=== PATIENT | female | born 2000 | race Caucasian/White ===

== ENCOUNTER 2019-02-09 18:52 | Emergency (ER) | payer OTHER ==
[~2019-02-09] VITALS: Ht 157.5 cm; Wt 83.2 kg
--- NOTE | 2019-02-09 20:30 | REPVR ---
PROCEDURE INFORMATION: Exam: CT Lumbar Spine Without Contrast Exam date and time: 02/09/2019 7:42 PM Age: 18 years old Clinical indication: Injury or trauma; Fall; Initial encounter; Blunt trauma (contusions or hematomas); Additional info: Fall injury; Vert. Point tender. Include s-spine please TECHNIQUE: Imaging protocol: Computed tomography images of the lumbar spine without contrast. Radiation optimization: All CT scans at this facility use at least one of these dose optimization techniques: automated exposure control; mA and/or kV adjustment per patient size (includes targeted exams where dose is matched to clinical indication); or iterative reconstruction. COMPARISON: No relevant prior studies available. FINDINGS: Vertebrae: [id number]-[id number] thoracolumbar levoconvex curvature. Vertebral body height and AP alignment is preserved. No acute fracture. Discs/Spinal canal/Neural foramina: No definite significant central canal stenosis. Soft tissues: Unremarkable. IMPRESSION: No acute osseous abnormality. Electronically signed by: Tony Huynh On 02/09/2019 20:29:30 PM
[2019-02-09 20:44] VITALS: BP 123/63
== END 2019-02-09 20:53 | disposition home or self-care (01) ==
LOC: M ED 18:52
DX: S30.0XXA Contusion of lower back and pelvis, initial encounter (principal); W00.0XXA Fall on same level due to ice and snow, initial encounter; Y92.89 Other specified places as the place of occurrence of the external cause; Z88.0 Allergy status to penicillin

== ENCOUNTER 2019-03-13 12:18 | Emergency (ER) | payer OTHER ==
[~2019-03-13] VITALS: Ht 157.5 cm; Wt 80.1 kg
[2019-03-13] MEDS ORDERED: NS 1,000 ML IV SCH (12:33)
[2019-03-13] MEDS ORDERED: KETOROLAC 30 MG/ML VIAL (J1885) IV ONE (12:45)
[2019-03-13 13:29] LABS: BASO % 0.4 % (0.0-1.0); EOS % 0.2 % (0.0-3.0); HEMATOCRIT 39.3 % (36.0-47.0); HEMOGLOBIN 12.9 g/dl (12.0-15.5); LYMPH # 0.8 10^3/uL (1.5-5.0); LYMPH % 14.9 % (24.0-44.0); MEAN CORPUSCULAR HEMOGLOBIN 27.6 pg (27.0-33.0); MEAN CORPUSCULAR HGB CONC 32.8 g/dl (32.0-36.5); MEAN CORPUSCULAR VOLUME 84.2 fl (80.0-96.0); MONO # 0.4 10^3/uL (0.0-0.8); MONO % 7.6 % (0.0-5.0); NEUTROPHILS # 4.2 10^3/uL (1.5-8.5); NEUTROPHILS % 76.7 % (36.0-66.0); PLATELET COUNT, AUTOMATED 245 10^3/uL (150-450); RED BLOOD COUNT 4.67 10^6/uL (4.00-5.40); WHITE BLOOD COUNT 5.4 10^3/uL (4.0-10.0)
[2019-03-13 13:47] LABS: BLOOD UREA NITROGEN 6 MG/DL (7-18); CALCIUM LEVEL 8.6 MG/DL (8.5-10.1); CARBON DIOXIDE LEVEL 23 MEQ/L (21-32); CHLORIDE LEVEL 107 MEQ/L (98-107); CREATININE FOR GFR 0.64 MG/DL (0.55-1.30); GLUCOSE, FASTING 82 MG/DL (70-100); LIPASE 64 U/L (73-393); POTASSIUM SERUM 3.7 MEQ/L (3.5-5.1); SODIUM LEVEL 139 MEQ/L (136-145)
[2019-03-13 13:51] LABS: INR 1.08; PROTHROMBIN TIME 13.7 SECONDS (11.8-14.0)
[2019-03-13 13:52] LABS: HCG, SERUM QUALITATIVE NEGATIVE (NEGATIVE)
[2019-03-13] MEDS ORDERED: PYRI1TAB5 PO (14:44)
[2019-03-13] MEDS ORDERED: CIPR-249 PO (14:45)
[2019-03-13] MEDS ORDERED: ZOFR4TAB16 PO (14:45)
[2019-03-13] MEDS ORDERED: IBUP-1022 PO (14:45)
--- NOTE | 2019-03-13 14:46 | REP ---
CT ABDOMEN AND PELVIS WITHOUT IV OR ORAL CONTRAST: HISTORY: Left lower quadrant pain. FINDINGS: Digital preliminary blueprint duplicator radiograph is unremarkable. The lung bases are clear on axial CT images. The liver and the spleen are normal in size and homogeneous in texture. No adrenal lesion is seen. The gallbladder and pancreas are unremarkable. Kidneys are morphologically intact. No hydronephrosis or intrarenal calculus is observed. No ureteral stone is seen. There is a 2 cm cystic area in the right ovary and a smaller cystic area in the left ovary 1.6 cm. No uterine abnormality is observed. Urinary bladder is unremarkable. The appendix is felt to be in the inguinal region without inflammatory change. Small and large intestinal bowel loops are unremarkable. No evidence of free air or abnormal fluid collection. No abdominal wall defect. There is a mild levoconvex lumbar scoliotic curvature. No bony destructive lesion. IMPRESSION: Levoconvex lumbar scoliosis. No urinary tract calculus or hydronephrosis seen. Small follicle cysts in each ovary. No acute abdominal or pelvic abnormality. Electronically Signed by Santosh Garcia MD 03/13/2019 03:08 P
--- NOTE | 2019-03-13 14:48 | REP ---
PELVIC SONOGRAPHY: HISTORY: Left lower quadrant pain. FINDINGS: Transabdominal and transvaginal scanning are performed. Uterine dimensions are 8.8 x 4.1 x 5.4 cm. Endometrial echo is 1.1 cm thick. No focal uterine mass is seen. There is a minimal amount of cul-de-sac fluid consistent with physiologic fluid. The right ovary measures 4.8 x 2.7 x 2.1 cm. It contains a 2.5 cm cyst and a 1.4 cm hypoechoic cyst. Its Doppler flow is normal, resistive index 0.54. The left ovary's dimensions are 3.4 x 2.0 x 1.9 cm. Doppler flow is present in the left ovary as well, resistive index 0.63. IMPRESSION: Two small follicle cysts, right ovary. Otherwise negative. Electronically Signed by Santosh Garcia MD 03/13/2019 03:08 P
[2019-03-13 15:11] VITALS: BP 112/63
== END 2019-03-13 15:11 | disposition home or self-care (01) ==
LOC: M ED 12:18
DX: N39.0 Urinary tract infection, site not specified (principal); Z88.0 Allergy status to penicillin
CPT/HCPCS: 36415; 74176; 76830; 76856; 80048; 81001; 83690; 84703; 85025; 85610; 87086; 93976; 96374; 99284; J1885

== ENCOUNTER 2019-09-11 09:05 | Emergency (ER) | payer OTHER ==
[~2019-09-11] VITALS: Ht 160 cm; Wt 84.3 kg
[~2019-09-11 09:05] MED LIST: CIPR-249 PO; IBUP-1022 PO; PYRI1TAB5 PO; ZOFR4TAB16 PO
[2019-09-11 09:48] LABS: BASO % 0.4 % (0.0-1.0); EOS # 0.1 10^3/uL (0.0-0.5); HEMATOCRIT 39.3 % (36.0-47.0); LYMPH # 1.4 10^3/uL (1.5-5.0); LYMPH % 16.7 % (24.0-44.0); MEAN CORPUSCULAR HEMOGLOBIN 27.7 pg (27.0-33.0); MEAN CORPUSCULAR HGB CONC 33.1 g/dl (32.0-36.5); MEAN CORPUSCULAR VOLUME 83.8 fl (80.0-96.0); MONO # 0.9 10^3/uL (0.0-0.8); MONO % 10.6 % (0.0-5.0); NEUTROPHILS # 5.9 10^3/uL (1.5-8.5); NEUTROPHILS % 71.1 % (36.0-66.0); PLATELET COUNT, AUTOMATED 252 10^3/uL (150-450); RED BLOOD COUNT 4.69 10^6/uL (4.00-5.40); WHITE BLOOD COUNT 8.2 10^3/uL (4.0-10.0)
[2019-09-11] MEDS ORDERED: ONDANSETRON 4MG/2ML VIAL IV ONE (10:00)
[2019-09-11] MEDS ORDERED: NS 1,000 ML IV ONE (10:00)
[2019-09-11 10:51] LABS: HCG, SERUM QUALITATIVE NEGATIVE (NEGATIVE)
[2019-09-11 11:55] LABS: ALBUMIN 3.6 GM/DL (3.2-5.2); ALT/SGPT 18 U/L (12-78); BILIRUBIN,DIRECT < 0.1 MG/DL (0.0-0.2); BILIRUBIN,TOTAL 0.5 MG/DL (0.2-1.0); CK-MB VALUE MASS < 1.0 NG/ML (<3.6); CPK CREATINE PHOSPHOKINASE 86 U/L (26-192); FREE T4 1.01 NG/DL (0.78-1.33); LIPASE 81 U/L (73-393); MB/CK RELATIVE INDEX 1.16 (< OR =4); TOTAL PROTEIN 7.8 GM/DL (6.4-8.2); TROPONIN I < 0.02 NG/ML (< 0.10)
[2019-09-11] MEDS ORDERED: ONDA4TAB6 PO (12:47)
[2019-09-11 12:57] VITALS: BP 118/69
--- NOTE | 2019-09-12 08:28 | ECGEPIP ---
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
== END 2019-09-11 12:58 | disposition home or self-care (01) ==
LOC: M ED 09:05
DX: R11.0 Nausea (principal); R10.84 Generalized abdominal pain; I45.10 Unspecified right bundle-branch block; R94.31 Abnormal electrocardiogram [ECG] [EKG]; Z88.0 Allergy status to penicillin
CPT/HCPCS: 80047; 80076; 81001; 82550; 82553; 83690; 84439; 84443; 84703; 85025; 93005; 96374; 99284; J2405